=== PATIENT | female | born 2000 | race Caucasian/White ===

== ENCOUNTER 2020-04-07 17:49 | Outpatient (REF) | payer MEDICAID, SELFPAY | END 2020-04-07 17:50 | disposition home or self-care (01) | LOC: HO.LAB 17:49 | PROVIDERS: Visit Provider Internal Medicine | DX: Z20.828 Contact with and (suspected) exposure to other viral communicable diseases (principal) | CPT/HCPCS: C9803; U0003 ==

== ENCOUNTER 2021-05-18 23:37 | Emergency (ER) | payer MEDICAID, SELFPAY ==
--- NOTE | ~2021-05-18 | XR_ITS ---
EXAMINATION: XR CHEST CLINICAL INFORMATION: Dyspnea COMPARISON: 10.29.2012 TECHNIQUE: Frontal view of the chest was obtained. FINDINGS: Normal symmetric lung volumes. No parenchymal consolidation. No pleural effusion. No pneumothorax. Cardiomediastinal silhouette and pulmonary vascularity are within normal limits. No acute osseous abnormalities. XR/XR chest 1V IMPRESSION: No acute findings
[2021-05-18 23:39] VITALS: BP 126/74; PULSE 86; RESP 18; TEMP 36.8; O2SAT 99; BMI 22.8
--- NOTE | 2021-05-18 23:44 | ECG_ITS ---
Test Reason : DYSPNEA Blood Pressure : / mmHG Vent. Rate : 068 BPM Atrial Rate : 068 BPM P-R Int : 124 ms QRS Dur : 088 ms QT Int : 398 ms P-R-T Axes : -22 059 039 degrees QTc Int : 423 ms Normal sinus rhythm Normal ECG When compared with ECG of 14-JUN-2016 14:07, No significant change was found Referred By: Generic ED Physician Electronically Signed By:KELECHI MARQUEZ MD
[2021-05-19 00:32] LABS: Influenza A PCR NEGATIVE (Negative); Influenza B PCR NEGATIVE (Negative); Resp Syncy Virus RNA Qual PCR NEGATIVE (Negative); SARS COV2 PCR INHOUSE NEGATIVE (Negative)
[2021-05-19] MEDS: Acetaminophen 325 MG TABLET 975 MG PO (00:49)
[2021-05-19 03:50] VITALS: BP 107/67; PULSE 70; RESP 16; TEMP 37; O2SAT 100
== END 2021-05-19 04:15 | disposition left against medical advice (07) ==
PROVIDERS: Emergency Provider Emergency Medicine
DX: R07.9 Chest pain, unspecified (principal); Z20.822 Contact with and (suspected) exposure to COVID-19
CPT/HCPCS: 0241U; 71045; 93005; 99283